=== PATIENT | male | born 1975 | race Caucasian/White ===

== ENCOUNTER 2018-07-23 13:56 | Inpatient (IN) | payer SELFPAY ==
[~2018-07-23] VITALS: Ht 180.3 cm; Wt 101.4 kg
--- NOTE | ~2018-07-23 | EKG ---
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
--- NOTE | ~2018-07-23 | CON ---
[place], [place] REPORT OF CONSULTATION NAME: KRISTEL YOUNG [facility] #: [id number] UNIT #: [id number] ROOM: 412 DOCTOR: JOSH MCKOY MD BIRTHDATE: [birth year] DOS: 07/24/2018 PULMONARY CONSULTATION, EVALUATION, AND MANAGEMENT CONSULTATION REQUESTED BY: Hospitalist service. REASON FOR CONSULTATION: For assessment of thromboembolism. HISTORY OF PRESENT ILLNESS: This is a 43-year-old male without any known medical problems, presented to the hospital for assessment of the progressive pain, which was reported in the lower back and left leg swelling. 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 He started having pain described in the mid back, lower back, and also radiating to the left lower extremity. Later on, the patient started having edema of the left lower extremity. He was complaining of symptoms of shortness of breath that has been noted mild, intermittent. There were no symptoms of chest pain, hemoptysis, wheezing, or coughing reported. The patient also reported symptoms of diaphoresis, palpitation, and flushing at home. He presented to the Emergency Room, where he has been assessed with ultrasound of the lower extremity noted with evidence of acute occlusive deep venous thrombosis in the left common femoral vein and superficial thrombus in the left greater saphenous vein identified. Later on, the patient had a CTA of the chest done that shows evidence of right lobe pulmonary embolism. The patient has been started on unfractionated therapeutic heparin for the anticoagulation. Anticoagulation was continued with continuous infusion of heparin noted at the present time. PAST MEDICAL HISTORY: Essentially noted hypertension. HOME MEDICATIONS: None. CURRENT MEDICATIONS: Current medications, which were administered actively at the present time were noted as nicotine inhaler p.r.n. use, morphine sulfate, and IV heparin unfractionated, currently administered as 1950 units per hour at this time of assessment. ALLERGIES: No known drug allergies. SOCIAL HISTORY: The patient is single, has a girlfriend, 2 children. 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 He has noted chronic tobacco use of 1 pack of cigarettes per day for early teens. FAMILY HISTORY: Denied any thromboembolism except one of the cousin of the patient stated with history of pulmonary embolism stated by the patient. History of father was unknown. The mother was known with history of COPD and dementia, ages 71 years old. REVIEW OF SYSTEMS: CONSTITUTIONAL SYMPTOMS: Fatigue and tiredness reported. Denies symptoms of fever or chills. [place], [place] REPORT OF CONSULTATION NAME: KRISTEL YOUNG UNIT #: [id number] ROOM: 412 DOCTOR: JOSH MCKOY MD BIRTHDATE: [birth year] EYES: Denies any burning, redness, or tenderness. EARS, NOSE, AND THROAT SYMPTOMS: Denies sore throat, hoarseness, otalgia, postnasal drainage, or epistaxis. GASTROINTESTINAL SYMPTOMS: No dysphagia, nausea, vomiting, diarrhea, hematemesis, melena, hematochezia, or abnormal weight loss. SKIN: Denies abnormal lesions or rashes. EXTREMITIES: Lower extremities, edema of the left lower extremity and pain. MUSCULOSKELETAL SYMPTOMS: No acute joint pain, redness, or tenderness. CENTRAL NERVOUS SYSTEM: No dizziness, headache, diplopia, or syncopal episodes. Remaining systems were reviewed and they were noted all negative. PHYSICAL EXAMINATION: GENERAL: The patient is a 43-year-old white male patient, who has been currently noted to be awake and alert without any acute distress this morning of assessment. Height is recorded as 5 feet 11 inches, weight of 223 pounds, and BMI of 31. VITAL SIGNS: The vital signs, which were noted as normal temperature, respiratory rate of 18-16, heart rate of 66-106, and blood pressure of 129/88-141/88. Pulse oxygen saturation recorded at rest on room air is 98% saturation. HEENT: Examination shows head was atraumatic. Eyes nonicterus. NECK: Supple. CARDIOVASCULAR SYSTEM: S1, S2 is audible. LUNGS: Noted clear of any wheezing or crackles. Jqhe-in-kewcimnu decreased breath sounds bilaterally. ABDOMEN: Soft, nontender. Bowel sounds present. EXTREMITIES: Noted with edema of the left lower extremity, which was moderate. There was no finding of cellulitis. MUSCULOSKELETAL: Without any acute deformities. CENTRAL NERVOUS SYSTEM: Intact. LABORATORY DATA: CBC done yesterday was noted as normal CBC. PT and INR was noted normal. PTT was normal as well at 24.. CMP that was done on 07/23/2018, normal BUN and creatinine and other electrolytes. PT and PTT was noted at midnight as 36. Another PTT which was done this morning as 30.3. PTT later on done at noon is therapeutic as 55. CBC of this morning remains normal. CMP this morning was noted as normal. IMAGING DATA: X-ray of the lumbar spine was done yesterday was also noted without any acute abnormalities. CT scan of the thoracic aorta done on 07/23/2017, thoracic and abdominal aorta with small pulmonary embolism was noted involving the right lower pulmonary arterial branches, single vessel. There was no evidence of saddle embolus. Nonspecific enlargement of the right hilum was noted with lymph node measured at 1.7 cm in size. There were no discrete lesion noted in the lungs as pulmonary nodules or mass lesions. The abdomen part was noted with a large renal cyst. There was no evidence of aortic aneurysm. DIAGNOSTIC DATA: Ultrasound of the lower extremity was done on the left side is noted as normal study. [place], [place] REPORT OF CONSULTATION NAME: KRISTEL YOUNG UNIT #: [id number] ROOM: 412 DOCTOR: JOSH MCKOY MD BIRTHDATE: [birth year] IMPRESSION: 1. The patient will be currently admitted to the hospital noted with findings of acute pulmonary embolism involving the right lower pulmonary arterial branches as well as acute deep venous thrombosis of the left lower extremity as well would be considered as stable venous thromboembolism. 2. Mild lymph node enlargement noted in the right hilar area at this time, significance unknown at this time with the current assessment of the CT scan of the chest and abdomen. There was no evidence of intrathoracic or intra-abdominal malignancy. There was known history of hypercoagulable disorder in the family member personally known as well. The patient does not have any history of surgery for long travel, risk factor, the current venous thromboembolism would be considered as unprovoked. PLAN OF MANAGEMENT: Continuation of intravenous therapeutic heparin until 9:00 p.m. The patient will be started on the Eliquis after that, the patient has a loading dose 10 mg b.i.d. The patient was observed for the next 12-24 hours and then consider home discharge on Eliquis for the long-term management of VTE. The patient would avoid any exertional activities, banding, squatting activity as well at least for the next 3-4 weeks. Outpatient followup need to be assessed. Limited hypercoagulable panel was also ordered. There was no evidence of hypoxia, so the patient would not require any oxygen supplementation. There was no hemodynamic instability as well. Other plan of management with care changes and the treatment will be made based on the progression of his overall illness. Thank you for allowing me to participate in the care of this patient. JOSH HOYT MD CM:CONSTR:REPORT OF CONSULTATION 1635 08/02/18 1025 interface
--- NOTE | ~2018-07-23 | PR ---
[place], [place] PROGRESS NOTE [id number] UNIT #: [id number] ROOM: 412 DOCTOR: EVELINA BURGESS MD,JOSH BIRTHDATE: [birth year] DOS: 07/25/2018 SUBJECTIVE: The patient noted to be comfortable at this time. He was still complaining of pain in the thigh. There were no symptoms of shortness of breath, chest pain reported. The heparin was discontinued yesterday. The patient started on Eliquis at 10:00 p.m. yesterday. The patient denies symptoms of fever or chills. Denies symptoms of headache or diplopia. OBJECTIVE: VITAL SIGNS: For the patient which were recorded shows a normal temperature, respiratory rate 20, heart rate of 75, blood pressure 118/78 this morning. Pulse ox at rest on room air 98% saturation. HEENT: Examination shows head was atraumatic. Eyes nonicterus. NECK: Supple. CARDIOVASCULAR: S1, S2 is audible. LUNGS: The patient was noted clear of any wheezing or crackles bilaterally. ABDOMEN: Soft, nontender. Bowel sounds present. No new change. EXTREMITIES: Edema of the left lower extremity was still noted. LABORATORY DATA: See chart. IMPRESSION: 1. Acute stable, nonsaddle. 2. Pulmonary embolism. 3. Acute deep venous thrombosis, left lower extremity. 4. Right hilar mild lymphadenopathy, significance unknown. PLAN OF MANAGEMENT: The patient certainly could be discharged home tomorrow on Eliquis for the patient to be taken loading dose total of 7 days followed by 5 mg b.i.d. dosing. In the meantime, continue other therapy, plan of management, care plan and treatment. Usual care. JOSH HOYT MD CM:PNTRANS [id number] JOSH BURGESS MD 08/02/18 1026 interface
[~2018-07-23 13:56] MED LIST: 2 MEDS FOR BP; AMOXIL500 M1 PO; ATARAX25 MG PO; CORDROL20 MG PO; ENALAPRIL20 MG PO; FLEXERIL10 MG PO; HYDROCHLOROTHIA25 MG PO; HYDROCODONE BIT1 T11 PO; IBU800 M1 PO; KENALOG 0.1% OI15 GM T; METOPROLOL SR25 MG PO; MOTRIN800 MG PO; NAPROSYN500 MG PO; PEN-VEE K500 MG PO; PREDNICOT20 MG PO; SUDAFED30 MG PO; TRAMADOL HCL50 MG PO; VIBRAMYCIN100 MG PO; VOLTAREN50 M1 PO
[2018-07-23 14:04] VITALS: BP 129/88
[2018-07-23 15:28] LABS: BASO % 0.3 % (0.0-1.0); EOS # 0.3 10*3/uL (0.0-0.4); HEMOGLOBIN 16.4 g/dl (14.0-18.0); LYMPH % 11.2 % (27.0-41.0); MEAN CELL VOLUME 91.8 fl (80.0-94.0); MEAN CORPUSCULAR HGB 32.7 pg (27.0-31.0); MEAN CORPUSCULAR HGB CONC 35.7 g/dl (33.0-37.0); MEAN PLATELET VOLUME 9.1 fl (9.6-12.3); MONO # 0.6 10*3/uL (0.1-1.0); MONO % 6.2 % (3.0-9.0); NEUT # 7.1 10*3/uL (2.3-7.9); NEUT % 78.9 % (47.0-73.0); PLATELET COUNT AUTOMATED 218 10*3/uL (130-400); RED BLOOD COUNT 5.01 10*6/uL (4.50-5.90); RED CELL DISTRI WIDTH 11.9 % (0-14.5)
[2018-07-23 15:37] LABS: INTERNATIONAL NORM RATIO 0.9 (2.0-3.5)
[2018-07-23 15:42] VITALS: BP 141/88
[2018-07-23 15:43] LABS: ALBUMIN 3.6 gm/dl (3.1-4.5); ALKALINE PHOSPHATASE 142 U/L (45-117); BUN 14 mg/dl (7-24); CHLORIDE 107 mmol/L (98-107); CPK 66 U/L (39-308); CREATININE 0.89 mg/dL (0.70-1.30); POTASSIUM 4.2 mmol/L (3.5-5.1); SGOT/AST 15 IU/L (3-35); SGPT/ALT 26 U/L (12-78); SODIUM 138 mmol/L (136-145); TOTAL PROTEIN 7.2 gm/dL (6.4-8.2)
[2018-07-23 15:44] LABS: CKMB < 1.0 ng/ml (0.5-3.6); TROPONIN I < 0.015 ng/ml (<0.045)
[2018-07-23 16:30] VITALS: BP 135/78
[2018-07-23 17:31] VITALS: BP 132/82
[2018-07-23 17:55] VITALS: BP 120/90
--- NOTE | 2018-07-23 17:55 | NUR ---
A 43, admitted to , under the services of YESSY Joe DO with a diagnosis of DVT, PULMONARY EMBOLISM. Chief complaint is BACK AND LLE PAIN. Patient arrived via ambulatory from ER. Monitor applied. Initial assessment completed. Vital signs taken and recorded. YESSY JOE DO notified of admission to the unit. Orders received. See assessment for past medical history, medications and allergies. Patient and/or family oriented to unit. [employer] visitation policy reviewed. Clothing/patient valuable form completed. ARTURO VASQUEZ
--- NOTE | 2018-07-23 18:31 | NUR ---
DR HOYT NOTIFIED OF CONSULT. NO NEW ORDERS RECEIVED AT THIS TIME.
[2018-07-23 20:00] VITALS: BP 134/79
[2018-07-24] VITALS: BP 130/73
--- NOTE | 2018-07-24 02:24 | NUR ---
A 43, admitted to , under the services of YESSY Joe DO with a diagnosis of . Chief complaint is . Patient arrived via from ER. Monitor applied. Initial assessment completed. Vital signs taken and recorded. YESSY JOE DO notified of admission to the unit. Orders received. See assessment for past medical history, medications and allergies. Patient and/or family oriented to unit. [facility]. Clothing/patient valuable form completed. CHRISTIANO HILLS
--- NOTE | 2018-07-24 02:30 | NUR ---
APTT RESULT 36.3, NEW CALCULATION REQUIRED PER HEPARIN PROTOCOL FOR DVT. BOLUS PATIENT WITH 40U/KG AND INCREASE DRIP BY 2U/KG/HR. BOLUS CALCULATED FOR WEIGHT IN POUNDS INSTEAD OF KILGRAMS. DR. RAM AND NURSING RANCH RIDER AWARE. HEPARIN DRIP ON HOLD UNTIL NEW APTT DRAWN IN AM PER . PATIENT INFORMED OF CALCULATION ERROR.
[2018-07-24 06:02] LABS: ALBUMIN 3.1 gm/dl (3.1-4.5); ALKALINE PHOSPHATASE 141 U/L (45-117); BUN 14 mg/dl (7-24); CHLORIDE 108 mmol/L (98-107); CHOLESTEROL 134 mg/dL (<200); CREATININE 0.83 mg/dL (0.70-1.30); HDL CHOLESTEROL 29 mg/dl (40-60); LDL CHOLESTEROL 80 mg/dL (9-159); PHOSPHOROUS 3.9 mg/dL (2.5-4.9); SGOT/AST 10 IU/L (3-35); SGPT/ALT 25 U/L (12-78); SODIUM 140 mmol/L (136-145); TOTAL PROTEIN 6.6 gm/dL (6.4-8.2); TRIGLYCERIDES 127 mg/dl (<150); VLDL CHOLESTEROL 25 mg/dL (6-40)
[2018-07-24 06:08] LABS: FREE T4 1.12 ng/dl (0.76-1.46)
[2018-07-24 06:18] LABS: BASO % 0.6 % (0.0-1.0); EOS # 0.3 10*3/uL (0.0-0.4); EOS % 4.8 % (1.0-4.0); HEMATOCRIT 43.8 % (42.0-52.0); HEMOGLOBIN 15.2 g/dl (14.0-18.0); LYMPH # 2.3 10*3/uL (1.3-4.4); LYMPH % 31.9 % (27.0-41.0); MEAN CELL VOLUME 93.2 fl (80.0-94.0); MEAN CORPUSCULAR HGB 32.3 pg (27.0-31.0); MEAN CORPUSCULAR HGB CONC 34.7 g/dl (33.0-37.0); MEAN PLATELET VOLUME 10.1 fl (9.6-12.3); MONO # 0.6 10*3/uL (0.1-1.0); NEUT # 3.8 10*3/uL (2.3-7.9); NEUT % 52.7 % (47.0-73.0); PLATELET COUNT AUTOMATED 190 10*3/uL (130-400); RED CELL DISTRI WIDTH 11.9 % (0-14.5); WHITE BLOOD COUNT 7.1 10*3/uL (4.8-10.8)
[2018-07-24 07:03] LABS: ACT PARTIAL THROMBO TIME 30.3 SECONDS (20.0-32.1); INTERNATIONAL NORM RATIO 0.9 (2.0-3.5)
[2018-07-24 07:57] LABS: VITAMIN D, 25-HYDROXY 38.3 ng/mL (30-100)
[2018-07-24 08:00] VITALS: BP 129/88
[2018-07-24 11:40] VITALS: BP 149/94
--- NOTE | 2018-07-24 12:48 | NUR ---
PTS PTT THERAPEUTIC PER HEPARIN PROTOCOL. PTT ORDERED FOR TOMORROW MORNING PER POLICY. DR MALDONADO NOTIFIED.
--- NOTE | 2018-07-24 15:01 | NUR ---
PER DR HOYT PT MAY GO HOME TOMORROW. HE WANTS PT TO HAVE [address] DOSES [address] FIRST[address] DR MALDONADO INFORMED
[2018-07-24 15:54] VITALS: BP 134/75
--- NOTE | 2018-07-24 19:51 | NUR ---
ADMINISTERED PRN IV MORPHINE FOR 5/10 BACK PAIN. WILL CONTINUE TO MONITOR THE PT AND REASSESS IN AN HOUR. CALL LIGHT IN REACH. NO OTHER COMPLAINTS AT THIS TIME.
[2018-07-24 20:00] VITALS: BP 107/72
--- NOTE | 2018-07-24 20:13 | NUR ---
24 HOUR CHART CHECK COMPLETE.
--- NOTE | 2018-07-24 20:56 | NUR ---
PT STATES "MORPHINE MEDICATION HELPED". LAYING IN BED WATCHING TV. NO NEW COMPLAINTS AT THIS TIME.
[2018-07-25] VITALS: BP 129/75
--- NOTE | 2018-07-25 04:59 | NUR ---
PRN MORPHINE ADMINISTERED PRESCRIBED. PT COMPLAINING OF 5/10 LEG AND BACK PAIN. WILL CONTINUE TO MONITOR THE PT AND REASSESS WITHIN THE HALF HOUR.
--- NOTE | 2018-07-25 05:30 | NUR ---
PT ASLEEP. NO SIGNS OF DISCOMFORT OR DISTRESS. RESPIRATIONS EASY AND REGULAR. MORPHINE SEEMS TO BE EFFECTIVE.
[2018-07-25 08:00] VITALS: BP 118/78
--- NOTE | 2018-07-25 11:04 | NUR ---
PT MEDICATED WITH IV MORPHINE PER PRN ORDER FOR C/O LOWER BACK PAIN. RATES PAIN 08/18. WILL MONITOR EFFECTIVENESS.
[2018-07-25] MEDS ORDERED: PERCOCET 5-3251 EACH PO (11:31)
[2018-07-25] MEDS ORDERED: XARELTO1 EACH PO (11:31)
[2018-07-25] MEDS ORDERED: XARE20MG PO (11:31)
--- NOTE | 2018-07-25 12:00 | NUR ---
PAIN MEDICINE EFFECTIVE PER PT.
--- NOTE | 2018-07-25 13:45 | NUR ---
Discharge instructions reviewed with patient/family. Patient receptive and verbalizes understanding. Follow-up care arranged. Written instructions given to patient/family. TORO ALVARADO.
== END 2018-07-25 13:45 | disposition home or self-care (01) | DRG 299 ==
LOC: ED 13:56 → EDHOLD 16:40 → 4E 17:25
PROVIDERS: Internal Medicine; Nurse Practitioner Family; ADMIT Internal Medicine
DX: I82.412 Acute embolism and thrombosis of left femoral vein (principal); I26.99 Other pulmonary embolism without acute cor pulmonale; I82.812 Embolism and thrombosis of superficial veins of left lower extremity; R59.9 Enlarged lymph nodes, unspecified; N28.1 Cyst of kidney, acquired; I10 Essential (primary) hypertension; R74.8 Abnormal levels of other serum enzymes; M54.5 Low back pain; E66.09 Other obesity due to excess calories; F17.210 Nicotine dependence, cigarettes, uncomplicated; Z68.31 Body mass index [BMI] 31.0-31.9, adult; Z71.6 Tobacco abuse counseling; Z79.899 Other long term (current) drug therapy; Z82.5 Family history of asthma and other chronic lower respiratory diseases; Z81.8 Family history of other mental and behavioral disorders

== ENCOUNTER → 2018-08-24 | Outpatient (CLI) | payer SELFPAY ==
[~2018-08-24] MED LIST changes: +PERCOCET 5-3251 EACH PO; +XARE20MG PO; +XARELTO1 EACH PO
== END | disposition home or self-care (01) ==
LOC: US 14:21
DX: I82.402 Acute embolism and thrombosis of unspecified deep veins of left lower extremity (principal); I26.99 Other pulmonary embolism without acute cor pulmonale

== ENCOUNTER → 2018-09-01 | Outpatient (CLI) | payer SELFPAY | END | disposition home or self-care (01) | LOC: RESCLI 02:06 | DX: I82.412 Acute embolism and thrombosis of left femoral vein (principal); I26.99 Other pulmonary embolism without acute cor pulmonale; F17.210 Nicotine dependence, cigarettes, uncomplicated; Z76.89 Persons encountering health services in other specified circumstances; Z71.6 Tobacco abuse counseling ==

== ENCOUNTER → 2018-10-07 | Outpatient (CLI) | payer SELFPAY | END | disposition home or self-care (01) | LOC: RESCLI 01:11 | DX: I82.412 Acute embolism and thrombosis of left femoral vein (principal); F17.210 Nicotine dependence, cigarettes, uncomplicated; Z71.6 Tobacco abuse counseling; Z88.8 Allergy status to other drugs, medicaments and biological substances ==

== ENCOUNTER → 2018-11-10 | Outpatient (CLI) | payer SELFPAY ==
[~2018-11-10] MED LIST changes: +ATENOLOL25 MG PO
== END | disposition home or self-care (01) ==
LOC: RESCLI 02:17
DX: I82.412 Acute embolism and thrombosis of left femoral vein (principal); F17.210 Nicotine dependence, cigarettes, uncomplicated; Z79.899 Other long term (current) drug therapy; Z88.8 Allergy status to other drugs, medicaments and biological substances

== ENCOUNTER 2018-12-08 00:54 | Emergency (ER) | payer SELFPAY ==
[~2018-12-08] VITALS: Ht 180.3 cm; Wt 90.7 kg
[~2018-12-08 00:54] MED LIST changes: -ATENOLOL25 MG PO
[2018-12-08 01:07] LABS: BASO % 0.6 % (0.0-1.0); EOS # 0.3 10*3/uL (0.0-0.4); EOS % 4.1 % (1.0-4.0); HEMATOCRIT 50.5 % (42.0-52.0); HEMOGLOBIN 17.5 g/dl (14.0-18.0); LYMPH # 2.5 10*3/uL (1.3-4.4); LYMPH % 34.8 % (27.0-41.0); MEAN CELL VOLUME 90.8 fl (80.0-94.0); MEAN CORPUSCULAR HGB 31.5 pg (27.0-31.0); MEAN CORPUSCULAR HGB CONC 34.7 g/dl (33.0-37.0); MEAN PLATELET VOLUME 10.3 fl (9.6-12.3); MONO # 0.6 10*3/uL (0.1-1.0); MONO % 8.8 % (3.0-9.0); NEUT # 3.6 10*3/uL (2.3-7.9); NEUT % 51.4 % (47.0-73.0); PLATELET COUNT AUTOMATED 300 10*3/uL (130-400); RED BLOOD COUNT 5.56 10*6/uL (4.50-5.90); RED CELL DISTRI WIDTH 12.5 % (0-14.5); WHITE BLOOD COUNT 7.1 10*3/uL (4.8-10.8)
[2018-12-08 01:44] LABS: ACT PARTIAL THROMBO TIME 25.5 SECONDS (20.0-32.1); INTERNATIONAL NORM RATIO 0.9 (2.0-3.5)
[2018-12-08 01:50] LABS: ALBUMIN 3.7 gm/dl (3.1-4.5); ALKALINE PHOSPHATASE 113 U/L (45-117); BUN 19 mg/dl (7-24); CHLORIDE 109 mmol/L (98-107); CREATININE 1.01 mg/dL (0.70-1.30); POTASSIUM 3.7 mmol/L (3.5-5.1); SGOT/AST 15 IU/L (3-35); SGPT/ALT 30 U/L (12-78); SODIUM 140 mmol/L (136-145); TOTAL PROTEIN 7.2 gm/dL (6.4-8.2)
[2018-12-08 01:51] LABS: TROPONIN I < 0.015 ng/ml (<0.045)
[2018-12-08] MEDS ORDERED: ATENOLOL25 MG PO (02:59)
== END 2018-12-08 03:24 | disposition home or self-care (01) ==
LOC: ED 00:54
PROVIDERS: Emergency Medicine
DX: I48.91 Unspecified atrial fibrillation (principal); I10 Essential (primary) hypertension; E66.9 Obesity, unspecified; F17.200 Nicotine dependence, unspecified, uncomplicated; Z86.718 Personal history of other venous thrombosis and embolism

== ENCOUNTER → 2018-12-15 | Outpatient (CLI) | payer SELFPAY ==
[~2018-12-15] MED LIST changes: +ATENOLOL25 MG PO
--- NOTE | ~2018-12-15 | EKG ---
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
== END | disposition home or self-care (01) ==
LOC: RESCLI 00:53
DX: Z13.31 Encounter for screening for depression (principal); Z13.39 Encounter for screening examination for other mental health and behavioral disorders; Z01.89 Encounter for other specified special examinations; I82.412 Acute embolism and thrombosis of left femoral vein; I48.0 Paroxysmal atrial fibrillation; K21.9 Gastro-esophageal reflux disease without esophagitis; Z28.21 Immunization not carried out because of patient refusal; Z79.899 Other long term (current) drug therapy; Z88.8 Allergy status to other drugs, medicaments and biological substances

== ENCOUNTER → 2019-03-15 | Outpatient (CLI) | payer SELFPAY | END | disposition home or self-care (01) | LOC: RESCLI 11:22 | DX: I82.412 Acute embolism and thrombosis of left femoral vein (principal); F17.210 Nicotine dependence, cigarettes, uncomplicated; I48.0 Paroxysmal atrial fibrillation; K21.9 Gastro-esophageal reflux disease without esophagitis; R60.0 Localized edema ==

== ENCOUNTER → 2019-03-30 | Outpatient (CLI) | payer SELFPAY | END | disposition home or self-care (01) | LOC: RESCLI 01:02 | DX: I82.512 Chronic embolism and thrombosis of left femoral vein (principal); K21.9 Gastro-esophageal reflux disease without esophagitis; I48.0 Paroxysmal atrial fibrillation; L30.9 Dermatitis, unspecified; Z79.899 Other long term (current) drug therapy ==

== ENCOUNTER → 2019-07-13 | Outpatient (CLI) | payer SELFPAY | LOC: RESCLI 03:09 | DX: K21.9 Gastro-esophageal reflux disease without esophagitis (principal); I48.0 Paroxysmal atrial fibrillation; I82.512 Chronic embolism and thrombosis of left femoral vein; L30.9 Dermatitis, unspecified; E66.9 Obesity, unspecified; F17.200 Nicotine dependence, unspecified, uncomplicated; Z71.6 Tobacco abuse counseling ==

== ENCOUNTER → 2019-10-12 | Outpatient (CLI) | payer SELFPAY | END | disposition home or self-care (01) | LOC: RESCLI 02:10 | PROVIDERS: ATTEND Internal Medicine Nephrology | DX: I48.0 Paroxysmal atrial fibrillation (principal); K21.9 Gastro-esophageal reflux disease without esophagitis; I82.512 Chronic embolism and thrombosis of left femoral vein; I25.10 Atherosclerotic heart disease of native coronary artery without angina pectoris; F17.210 Nicotine dependence, cigarettes, uncomplicated; Z79.899 Other long term (current) drug therapy; Z98.890 Other specified postprocedural states ==

== ENCOUNTER → 2020-07-18 | Outpatient (CLI) | payer SELFPAY | END | disposition home or self-care (01) | LOC: RESCLI 01:07 | PROVIDERS: ATTEND Internal Medicine | DX: L30.9 Dermatitis, unspecified (principal); K21.9 Gastro-esophageal reflux disease without esophagitis; I48.0 Paroxysmal atrial fibrillation; E66.9 Obesity, unspecified; F17.210 Nicotine dependence, cigarettes, uncomplicated; Z23 Encounter for immunization; Z79.899 Other long term (current) drug therapy ==

== ENCOUNTER → 2020-10-30 | Outpatient (CLI) | payer OTHER | END | disposition home or self-care (01) | LOC: COVID19 15:46 | PROVIDERS: ATTEND Family Medicine | DX: U07.1 COVID-19 (principal) ==

== ENCOUNTER → 2021-02-14 | Outpatient (CLI) | payer OTHER | END | disposition home or self-care (01) | LOC: COVID19 17:14 | PROVIDERS: ATTEND Podiatrist Foot & Ankle Surgery | DX: Z20.822 Contact with and (suspected) exposure to COVID-19 (principal) ==

== ENCOUNTER → 2021-04-12 | Outpatient (CLI) | payer SELFPAY | END | disposition home or self-care (01) | LOC: RESCLI 03:22 | PROVIDERS: ATTEND Internal Medicine | DX: I48.0 Paroxysmal atrial fibrillation (principal); K21.9 Gastro-esophageal reflux disease without esophagitis; L30.9 Dermatitis, unspecified; I82.412 Acute embolism and thrombosis of left femoral vein; E66.9 Obesity, unspecified; R07.9 Chest pain, unspecified; Z79.899 Other long term (current) drug therapy ==

== ENCOUNTER → 2022-07-24 | Outpatient (CLI) | payer SELFPAY ==
[2022-07-24 17:21] LABS: BASO % 0.2 % (0.0-1.0); EOS # 0.1 10*3/uL (0.0-0.4); EOS % 2.4 % (1.0-4.0); HEMATOCRIT 47.6 % (42.0-52.0); LYMPH # 1.7 10*3/uL (1.3-4.4); LYMPH % 32.4 % (27.0-41.0); MEAN CELL VOLUME 91.5 fl (80.0-94.0); MEAN CORPUSCULAR HGB 32.1 pg (27.0-31.0); MEAN CORPUSCULAR HGB CONC 35.1 g/dl (33.0-37.0); MEAN PLATELET VOLUME 9.7 fl (9.6-12.3); MONO # 0.4 10*3/uL (0.1-1.0); NEUT # 3.1 10*3/uL (2.3-7.9); NEUT % 56.8 % (47.0-73.0); PLATELET COUNT AUTOMATED 168 10*3/uL (130-400); RED CELL DISTRI WIDTH 12.3 % (0-14.5); WHITE BLOOD COUNT 5.4 10*3/uL (4.8-10.8)
[2022-07-24 17:47] LABS: ALKALINE PHOSPHATASE 110 U/L (46-116); BUN 11 mg/dl (9-23); CHLORIDE 104 mmol/L (98-107); CHOLESTEROL 100 mg/dL (<200); LDL CHOLESTEROL 50 mg/dL (9-159); SGPT/ALT 12 U/L (10-49); TOTAL PROTEIN 7.3 gm/dL (6.0-8.0); TRIGLYCERIDES 92 mg/dl (<150)
== END | disposition home or self-care (01) ==
LOC: RESCLI 01:40
PROVIDERS: Internal Medicine; ATTEND Internal Medicine
DX: I48.0 Paroxysmal atrial fibrillation (principal); I30.9 Acute pericarditis, unspecified; K21.9 Gastro-esophageal reflux disease without esophagitis; I10 Essential (primary) hypertension; E78.5 Hyperlipidemia, unspecified; Z12.9 Encounter for screening for malignant neoplasm, site unspecified; Z82.49 Family history of ischemic heart disease and other diseases of the circulatory system; Z98.890 Other specified postprocedural states; Z12.5 Encounter for screening for malignant neoplasm of prostate; Z79.01 Long term (current) use of anticoagulants; Z79.899 Other long term (current) drug therapy

== ENCOUNTER → 2023-11-21 | Outpatient (CLI) | payer OTHER | END | disposition home or self-care (01) | LOC: CARD 09:45 | PROVIDERS: ATTEND Registered Nurse | DX: I48.91 Unspecified atrial fibrillation (principal); R07.89 Other chest pain ==

== ENCOUNTER 2024-03-14 21:36 | Emergency (ER) | payer OTHER ==
[~2024-03-14] VITALS: Ht 180.3 cm; Wt 106.6 kg
[2024-03-14] MEDS ORDERED: PREDNISONE20 M1 PO (22:57)
== END 2024-03-14 23:04 | disposition home or self-care (01) ==
LOC: ED 21:36
DX: M25.562 Pain in left knee (principal); M79.89 Other specified soft tissue disorders; I10 Essential (primary) hypertension; F17.200 Nicotine dependence, unspecified, uncomplicated; Z98.890 Other specified postprocedural states

== ENCOUNTER → 2024-03-15 | Outpatient (CLI) | payer OTHER ==
[~2024-03-15] MED LIST changes: +PREDNISONE20 M1 PO
== END | disposition home or self-care (01) ==
LOC: RAD 02:02
PROVIDERS: ATTEND Internal Medicine
DX: M79.89 Other specified soft tissue disorders (principal); I48.91 Unspecified atrial fibrillation